=== PATIENT | female | born 1985 | race Caucasian/White ===

== ENCOUNTER 2018-11-29 23:52 | Emergency (ER) | payer MEDICAID ==
[~2018-11-29] VITALS: Ht 170.2 cm; Wt 122.5 kg
[~2018-11-29 23:52] MED LIST: OME20GT; RIFA300C3; [UNRECOGNIZED DRUG - CODE]
[2018-11-30 00:08] VITALS: BP 147/98
== END 2018-11-30 01:45 | disposition left against medical advice (07) ==
LOC: ER 11-30 00:09
DX: R03.0 Elevated blood-pressure reading, without diagnosis of hypertension (principal); Z53.21 Procedure and treatment not carried out due to patient leaving prior to being seen by health care provider

== ENCOUNTER 2020-05-15 15:26 | Emergency (ER) | payer OTHER, MEDICAID ==
[~2020-05-15] VITALS: Ht 170.2 cm; Wt 113.4 kg
[2020-05-15 15:33] VITALS: BP 119/73
[2020-05-15] MEDS ORDERED: HYDROcodone-ACET 10/325MG TAB PO ONE (16:45)
== END 2020-05-15 16:50 | disposition home or self-care (01) ==
LOC: ER 15:26 → EDBD 15:26 → EDUNIT# 15:26 → ER 16:50
DX: S52.302A Unspecified fracture of shaft of left radius, initial encounter for closed fracture (principal); K21.9 Gastro-esophageal reflux disease without esophagitis; V43.52XA Car driver injured in collision with other type car in traffic accident, initial encounter; Y93.I9 Activity, other involving external motion; Y92.89 Other specified places as the place of occurrence of the external cause; Y99.8 Other external cause status
CPT/HCPCS: 29125; 73110

== ENCOUNTER 2024-03-23 21:03 | Inpatient (IN) | payer SELFPAY ==
[~2024-03-23] VITALS: Ht 170.2 cm; Wt 119.2 kg
[~2024-03-23 21:03] MED LIST changes: -RIFA300C3; +RIFA300C58
[2024-03-23 22:54] LABS: Basophils # (auto) 0.1 10 ^3/uL (0-0.2); Eosinophils # (auto) 0.2 10 ^3/uL (0-0.8); Hemoglobin 12.3 g/dL (12.2-16.2)
[2024-03-23 22:56] LABS: Basophils % (auto) 0.8 % (0.0-2.0); Eosinophils % (auto) 1.9 % (0.0-7.0); Hematocrit 39.1 % (36.0-46.0); Lymphocytes # (auto) 1.8 10 ^3/uL (0.4-5.4); Lymphocytes % (auto) 20.8 % (10.0-50.0); Mean Corpuscular Hemoglobin 25.1 pg (28.0-32.0); Mean Corpuscular Hgb Conc. 31.4 g/dL (32.0-36.0); Mean Corpuscular Volume 79.9 fL (80.0-100.0); Monocytes # (auto) 0.6 10 ^3/uL (0-1.3); Neutrophils % (auto) 69.5 % (37.0-80.0); Nucleated Red Blood Cells % 0.1 %; Red Cell Distribution Width 16.5 % (11.8-14.3); White Blood Cell 8.6 10^3/uL (4.4-10.8)
[2024-03-23 23:10] LABS: Alanine Aminotransferase 25 U/L (7-40); Albumin 3.9 g/dL (3.2-4.8); Alkaline Phosphatase 88 U/L (46-116); Anion Gap 9 (5-15); Aspartate Aminotransferase 27 U/L (13-40); BUN/Creatinine Ratio 11.1 (10.0-20.0); Bilirubin, Total 0.6 mg/dL (0.2-1.0); Blood Urea Nitrogen 11 mg/dL (9-23); Calcium 9.1 mg/dL (8.7-10.4); Carbon Dioxide 21 mmol/L (20-30); Chloride 109 mmol/L (98-107); Glucose 135 mg/dL (74-106); Lipase 54 U/L (12-53); Sodium 139 mmol/L (136-145); Total Protein 6.9 g/dL (5.7-8.2)
[2024-03-24] MEDS: METOPROLOL SUCCINATE XL 50 MG TAB PO ONE (01:30)
[2024-03-24] MEDS ORDERED: DOCUSATE SOD 100 MG CAP PO PRN (02:15)
[2024-03-24] MEDS ORDERED: ONDANSETRON HCL 4 MG/2 ML VIAL IV PRN (02:15)
[2024-03-24] MEDS ORDERED: HYDROcodone-ACET 5/325MG TAB PO PRN (02:15)
[2024-03-24 02:40] VITALS: BP 148/98; PULSE 122; RESP 20; O2SAT 94
[2024-03-24] MEDS ORDERED: NITROGLYCERIN 0.4 MG SL TAB SL PRN (02:45)
[2024-03-24] MEDS ORDERED: MORPHINE SULFATE INJ 2 MG/ml SYRG IV PRN (02:45)
[2024-03-24] MEDS ORDERED: IPRATROPIUM BROM 0.5 MG/2.5ML INH SOL NEB PRN (02:45)
[2024-03-24] MEDS ORDERED: ALBUTEROL SULF 2.5 MG/0.5ML(0.5%) NEB SOLN NEB PRN (02:45)
[2024-03-24] MEDS: methylPREDNISolone SOD SUCC 125 MG/2 ML VL IV ONE (03:35)
[2024-03-24] MEDS: SODIUM CHLORIDE 0.9% 1,000 ML IV SCH (03:35)
[2024-03-24] MEDS: FUROSEMIDE 40 MG/4 ML VIAL IV ONE ×2 (03:36→16:19)
[2024-03-24 04:07] LABS: Urine Bacteria None Seen /hpf (None Seen)
[2024-03-24 04:21] LABS: Urine Blood Negative /uL (Negative); Urine Budding Yeast OCCASIONAL /hpf (None Seen); Urine Clarity Clear (Clear); Urine Color Light-Yellow (Yellow); Urine Protein, UAD Negative (Negative); Urine Specific Gravity 1.014 (1.001-1.035); Urine Urobilinogen Normal (Negative); Urine WBC 1 /hpf (0 - 5); Urine pH 5.5 (5.0-9.0)
[2024-03-24 04:25] LABS: Amphetamine Screen, Urine Pos (NEGATIVE); Barbiturate Scree,Urine Neg (NEGATIVE); Benzodiazephine Screen, Urine Neg (NEGATIVE); Cocaine Screen, Urine Neg (NEGATIVE)
[2024-03-24 04:26] LABS: Cannabinoid Screen, Urine Neg (NEGATIVE); Phencyclidine Screen, Urine Neg (NEGATIVE)
[2024-03-24 04:41] LABS: Opiate Scree,Urine Neg (NEGATIVE)
[2024-03-24 06:03] LABS: Basophils # (auto) 0 10 ^3/uL (0-0.2); Basophils % (auto) 0.5 % (0.0-2.0); Eosinophils # (auto) 0.1 10 ^3/uL (0-0.8); Eosinophils % (auto) 1.6 % (0.0-7.0); Hematocrit 40.3 % (36.0-46.0); Hemoglobin 12.8 g/dL (12.2-16.2); Lymphocytes # (auto) 0.8 10 ^3/uL (0.4-5.4); Lymphocytes % (auto) 10.7 % (10.0-50.0); Mean Corpuscular Hemoglobin 25.1 pg (28.0-32.0); Mean Corpuscular Hgb Conc. 31.9 g/dL (32.0-36.0); Mean Corpuscular Volume 78.8 fL (80.0-100.0); Monocytes # (auto) 0.1 10 ^3/uL (0-1.3); Monocytes % (auto) 1.7 % (0.0-12.0); Neutrophils # (auto) 6.6 10 ^3/uL (1.6-8.6); Neutrophils % (auto) 85.5 % (37.0-80.0); Red Blood Cells 5.11 10^6/uL (4.0-5.20); Red Cell Distribution Width 16.2 % (11.8-14.3); White Blood Cell 7.7 10^3/uL (4.4-10.8)
[2024-03-24 06:27] LABS: Alanine Aminotransferase 25 U/L (7-40); Albumin 4.2 g/dL (3.2-4.8); Alkaline Phosphatase 96 U/L (46-116); Anion Gap 11 (5-15); Aspartate Aminotransferase 28 U/L (13-40); BUN/Creatinine Ratio 13.7 (10.0-20.0); Blood Urea Nitrogen 14 mg/dL (9-23); Calcium 9.3 mg/dL (8.7-10.4); Carbon Dioxide 23 mmol/L (20-30); Chloride 103 mmol/L (98-107); Glucose 190 mg/dL (74-106); Potassium 3.8 mmol/L (3.5-5.1); Sodium 137 mmol/L (136-145)
[2024-03-24 06:28] LABS: Bilirubin, Total 0.6 mg/dL (0.2-1.0); Total Protein 7.3 g/dL (5.7-8.2)
[2024-03-24 08:42] VITALS: PULSE 113; RESP 17; O2SAT 96
[2024-03-24] MEDS: FAMOTIDINE (10MG/ML) 2ML VL IV SCH (09:35)
[2024-03-24] MEDS: METOPROLOL TARTRATE 50 MG TAB PO SCH (09:37)
[2024-03-24 10:50] VITALS: O2SAT 93
[2024-03-24] MEDS: IOHEXOL 350 MG/ML 100ML IJ ONE (13:17)
[2024-03-24 19:30] VITALS: PULSE 123; RESP 26; O2SAT 90
[2024-03-24 20:45] VITALS: O2SAT 98
[2024-03-24 21:03] LABS: Rapid Influenza A Negative (Negative); Rapid Influenza B Negative (Negative)
[2024-03-24 21:08] LABS: COVID19 ANTIGEN SOFIA FIA NEGATIVE (NEGATIVE)
[2024-03-24] MEDS: methylPREDNISolone SOD SUCC 40 MG/ML VL IV SCH (22:29)
[2024-03-25] VITALS (8 sets, daily range): BP systolic 142–150; BP diastolic 87–95; PULSE 112–122; RESP 18–20; TEMP 97.2–97.7; O2SAT 90–98
[2024-03-25 06:23] LABS: Basophils # (auto) 0 10 ^3/uL (0-0.2); Basophils % (auto) 0.1 % (0.0-2.0); Eosinophils # (auto) 0 10 ^3/uL (0-0.8); Lymphocytes # (auto) 1.2 10 ^3/uL (0.4-5.4); Lymphocytes % (auto) 8.5 % (10.0-50.0); Mean Corpuscular Volume 79.4 fL (80.0-100.0); Monocytes # (auto) 0.4 10 ^3/uL (0-1.3); Neutrophils # (auto) 12.4 10 ^3/uL (1.6-8.6); Red Cell Distribution Width 16.4 % (11.8-14.3)
[2024-03-25 06:24] LABS: Hematocrit 38.6 % (36.0-46.0); Hemoglobin 12.2 g/dL (12.2-16.2); Mean Corpuscular Hgb Conc. 31.5 g/dL (32.0-36.0); Monocytes % (auto) 2.8 % (0.0-12.0); Neutrophils % (auto) 88.6 % (37.0-80.0); Red Blood Cells 4.87 10^6/uL (4.0-5.20)
[2024-03-25 06:30] LABS: Alanine Aminotransferase 25 U/L (7-40); Albumin 3.9 g/dL (3.2-4.8); Alkaline Phosphatase 90 U/L (46-116); Anion Gap 9 (5-15); Aspartate Aminotransferase 20 U/L (13-40); Blood Urea Nitrogen 15 mg/dL (9-23); Calcium 9.1 mg/dL (8.7-10.4); Carbon Dioxide 25 mmol/L (20-30); Chloride 104 mmol/L (98-107); Glucose 189 mg/dL (74-106); Potassium 4.2 mmol/L (3.5-5.1); Sodium 138 mmol/L (136-145)
[2024-03-25 06:31] LABS: Bilirubin, Total 0.4 mg/dL (0.2-1.0); Total Protein 6.7 g/dL (5.7-8.2)
[2024-03-25] MEDS: FUROSEMIDE 40 MG/4 ML VIAL IV SCH (10:38)
[2024-03-25 12:32] LABS: Hepatitis B Surface Antigen Negative (Negative)
[2024-03-25 12:54] LABS: Hepatitis C Antibody Negative (Negative)
[2024-03-25] MEDS: amLODIPine BESYLATE 5 MG TAB PO ONE (14:55)
[2024-03-25] MEDS: ACETAMINOPHEN 325 MG TAB PO PRN (21:16)
[2024-03-26] VITALS (12 sets, daily range): BP systolic 125–164; BP diastolic 75–106; PULSE 102–131; RESP 15–21; TEMP 96.9–98.1; O2SAT 91–98
[2024-03-26 05:34] LABS: Basophils # (auto) 0 10 ^3/uL (0-0.2); Basophils % (auto) 0.1 % (0.0-2.0); Eosinophils # (auto) 0 10 ^3/uL (0-0.8); Neutrophils # (auto) 13.1 10 ^3/uL (1.6-8.6); Nucleated Red Blood Cells % 0.1 %
[2024-03-26 05:40] LABS: Hematocrit 42.1 % (36.0-46.0); Hemoglobin 13.2 g/dL (12.2-16.2); Lymphocytes # (auto) 1.2 10 ^3/uL (0.4-5.4); Lymphocytes % (auto) 8.3 % (10.0-50.0); Mean Corpuscular Hemoglobin 25.2 pg (28.0-32.0); Mean Corpuscular Hgb Conc. 31.4 g/dL (32.0-36.0); Mean Corpuscular Volume 80.3 fL (80.0-100.0); Monocytes # (auto) 0.5 10 ^3/uL (0-1.3); Monocytes % (auto) 3.7 % (0.0-12.0); Neutrophils % (auto) 87.9 % (37.0-80.0); Red Blood Cells 5.25 10^6/uL (4.0-5.20); Red Cell Distribution Width 16.5 % (11.8-14.3); White Blood Cell 14.9 10^3/uL (4.4-10.8)
[2024-03-26 05:44] LABS: Alanine Aminotransferase 24 U/L (7-40); Alkaline Phosphatase 82 U/L (46-116); Anion Gap 8 (5-15); Aspartate Aminotransferase 17 U/L (13-40); BUN/Creatinine Ratio 21.7 (10.0-20.0); Blood Urea Nitrogen 20 mg/dL (9-23); Calcium 9.2 mg/dL (8.7-10.4); Carbon Dioxide 24 mmol/L (20-30); Chloride 105 mmol/L (98-107); Glucose 183 mg/dL (74-106); Potassium 4.3 mmol/L (3.5-5.1); Sodium 137 mmol/L (136-145)
[2024-03-26 05:45] LABS: Bilirubin, Total 0.4 mg/dL (0.2-1.0)
[2024-03-26] MEDS: amLODIPine BESYLATE 5 MG TAB PO SCH (11:22)
[2024-03-26] MEDS: hydrALAZINE HCL 20 MG/ML VL IV PRN (18:23)
[2024-03-26] MEDS: FUROSEMIDE 40 MG/4 ML VIAL IV SCH (18:23)
[2024-03-26] MEDS: POTASSIUM CHL 10 Meq TABLET PO SCH (21:28)
[2024-03-27] VITALS (7 sets, daily range): BP systolic 121–149; BP diastolic 83–96; PULSE 105–118; RESP 18–22; TEMP 96.8–98.5; O2SAT 94–98
[2024-03-27 07:03] LABS: Chloride 104 mmol/L (98-107); Potassium 3.6 mmol/L (3.5-5.1); Sodium 139 mmol/L (136-145)
[2024-03-27 07:04] LABS: Anion Gap 9 (5-15); Calcium 9.2 mg/dL (8.5-10.1); Carbon Dioxide 26 mmol/L (20-30)
[2024-03-27 07:09] LABS: Blood Urea Nitrogen 16 mg/dL (9-23); Glucose 166 mg/dL (74-106)
[2024-03-27] MEDS ORDERED: ENOXAPARIN SOD 30 MG/0.3 ML SYRINGE SC ONE (10:00)
[2024-03-27] MEDS ORDERED: METO-6 PO (10:20)
[2024-03-27] MEDS ORDERED: AML5T PO (10:20)
[2024-03-27] MEDS ORDERED: TRIA37.587 PO (10:20)
[2024-03-27] MEDS: FUROSEMIDE 20 MG/2 ML VIAL IV ONE (10:22)
[2024-03-27] MEDS: PANTOPRAZOLE 40 MG TAB PO SCH (10:22)
== END 2024-03-27 11:30 | disposition home or self-care (01) | DRG 291 ==
LOC: ER 21:03 → TELE 03-24 02:35 → TELE-CENTR 03-25 10:13
PROVIDERS: ADMIT Nurse Practitioner Family; ATTEND Internal Medicine
DX: I11.0 Hypertensive heart disease with heart failure (principal); I50.33 Acute on chronic diastolic (congestive) heart failure; J96.01 Acute respiratory failure with hypoxia; Z68.41 Body mass index [BMI] 40.0-44.9, adult; E66.01 Morbid (severe) obesity due to excess calories; R73.9 Hyperglycemia, unspecified; Z20.822 Contact with and (suspected) exposure to COVID-19; K21.9 Gastro-esophageal reflux disease without esophagitis; F12.90 Cannabis use, unspecified, uncomplicated; D72.829 Elevated white blood cell count, unspecified; R73.03 Prediabetes; F15.10 Other stimulant abuse, uncomplicated; Z79.899 Other long term (current) drug therapy
CPT/HCPCS: 36415; 71045; 71275; 80048; 80053; 80307; 81001; 83036; 83690; 83735; 83880; 84484; 85025; 86803; 87340; 87426; 87804; 93005; 93306; 93970; 96374; 96375; G0378; J3490